=== PATIENT | male | born 1995 | race Caucasian/White ===

== ENCOUNTER 2017-02-13 12:25 | Emergency (ER) | payer OTHER ==
[2017-02-13] MEDS ORDERED: ceFAZolin 1,000 MG in DEXTROSE/WATER 1 50ML.BAG IVPB STA (12:28)
[2017-02-13] MEDS ORDERED: DIPH,PERTUS(ACELL)TETVAC-LF 0.5 ML VIAL IM ONE (12:28)
[2017-02-13 12:39] VITALS: BP 123/60; PULSE 68; RESP 16; TEMP 97.4
[2017-02-13] MEDS ORDERED: RX INFO: IV CONTRAST WAS GIVEN 1 EACH MISC MISCELLANE PRN (12:45)
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
[2017-02-13] MEDS ORDERED: SODIUM CHLORIDE 0.9% 1,000 ML IV STA (12:54)
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
--- NOTE | 2017-02-13 13:01 | XR ---
EXAMINATION TYPE: XR chest 1V portable DATE OF EXAM: 02/13/2017 HISTORY: trauma. REFERENCE: Previous study dated 11/20/2015. FINDINGS: The lungs are clear. Pleural space are clear. The heart is not enlarged. I do not see evide nce of pneumothorax. IMPRESSION: NO ACUTE INTRATHORACIC ABNORMALITY.
--- NOTE | 2017-02-13 13:07 | XR ---
EXAMINATION TYPE: XR pelvis AP view , ONE VIEW DATE OF EXAM ORDERED: 02/13/2017 HISTORY: Trauma. COMPARISON: Previous study dated 11/20/2015. FINDINGS: Osseous structures about the pelvis are normal. No fracture or other acute osseous lesion is seen. IMPRESSION: NORMAL PELVIS.
[2017-02-13 13:48] LABS: Basophils # (A) 0.1 k/uL (0-0.2); Basophils % (A) 0 %; CHCM 33.9; Eosinophils # (A) 0.1 k/uL (0-0.7); Eosinophils % (A) 1 %; HCT 45.8 % (39.0-53.0); HDW 2.49; HGB 14.8 gm/dL (13.0-17.5); Luc # (Auto) 0.07; Luc % (Auto) 1; Lymphocytes # (A) 0.8 k/uL (1.0-4.8); Lymphocytes % (A) 7 %; MCH 28.8 pg (25.0-35.0); MCHC 32.4 g/dL (31.0-37.0); MCV 88.9 fL (80.0-100.0); Monocytes # (A) 0.4 k/uL (0-1.0); Monocytes % (A) 4 %; Neutrophils % (A) 88 %; RBC 5.15 m/uL (4.30-5.90); RDW 14.2 % (11.5-15.5); WBC 11.4 k/uL (4.0-11.0); WBC (Perox) 11.88
[2017-02-13 14:13] LABS: INR 1.2 (<1.2); Partial Thromboplastin Time 22.2 sec (22.0-30.0); Prothrombin Time 11.8 sec (9.0-12.0)
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
[2017-02-13 14:20] LABS: ALT 23 U/L (21-72); AST 18 U/L (17-59); Alcohol <10 mg/dL; Alkaline Phosphatase 46 U/L (38-126); Anion Gap 5 mmol/L; Blood Urea Nitrogen 14 mg/dL (9-20); Calcium 8.3 mg/dL (8.4-10.2); Carbon Dioxide 25 mmol/L (22-30); Chloride 109 mmol/L (98-107); Glucose 85 mg/dL (74-99); Non-African American GFR(MDRD) >60 (>60 ml/min/1.73 sqM); Potassium 3.7 mmol/L (3.5-5.1); Sodium 139 mmol/L (137-145); Total Bilirubin 0.4 mg/dL (0.2-1.3); Total Protein 4.5 g/dL (6.3-8.2)
[2017-02-13 14:35] LABS: Creatine Kinase MB 1.4 ng/mL (0.0-2.4)
[2017-02-13 14:41] LABS: Troponin I 0.044 ng/mL (0.000-0.034)
== END 2017-02-13 14:55 | disposition other institution (70) ==
LOC: EC 12:25
DX: S21.131A Puncture wound without foreign body of right front wall of thorax without penetration into thoracic cavity, initial encounter (principal); S27.1XXA Traumatic hemothorax, initial encounter; F17.200 Nicotine dependence, unspecified, uncomplicated; Z23 Encounter for immunization; Z91.018 Allergy to other foods; X78.1XXA Intentional self-harm by knife, initial encounter; Y92.009 Unspecified place in unspecified non-institutional (private) residence as the place of occurrence of the external cause
CPT/HCPCS: 90471 ×2; 96365 ×2; 99291 ×2; 36415; 93005; 86900; 86901; 80053; 82550; 82553; 83690; 84484; 85025; 85610; 85730; 86850; 80320; 71010; 72170; 71260; 90715; Q9967; J0690; 86920; 96361

== ENCOUNTER 2017-02-16 15:50 | Inpatient (IN) | payer OTHER ==
[2017-02-16] MEDS ORDERED: ACETAMINOPHEN TAB 325 MG TAB PO PRN (20:20)
[2017-02-16] MEDS ORDERED: MAGNESIUM HYDROXIDE 2,400 MG/10 ML CUP PO PRN (20:20)
[2017-02-16] MEDS ORDERED: MAG HYDROX/AL HYDROX/SIMETH 30 ML CUP PO PRN (20:20)
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
[2017-02-16 21:39] LABS: Basophils # (A) 0.1 k/uL (0-0.2); Basophils % (A) 1 %; CHCM 33.1; Eosinophils # (A) 0.2 k/uL (0-0.7); Eosinophils % (A) 2 %; HCT 48.4 % (39.0-53.0); HDW 2.55; HGB 16.2 gm/dL (13.0-17.5); Luc # (Auto) 0.21; Luc % (Auto) 2; Lymphocytes # (A) 1.8 k/uL (1.0-4.8); Lymphocytes % (A) 15 %; MCH 29.5 pg (25.0-35.0); MCHC 33.5 g/dL (31.0-37.0); Mean Platelet Volume 6.6; Monocytes # (A) 0.7 k/uL (0-1.0); Monocytes % (A) 6 %; Neutrophils # (A) 9.1 k/uL (1.3-7.7); Neutrophils % (A) 76 %; RDW 12.7 % (11.5-15.5); WBC (Perox) 11.67
[2017-02-16 21:50] LABS: Anion Gap 9 mmol/L; Blood Urea Nitrogen 19 mg/dL (9-20); Calcium 9.5 mg/dL (8.4-10.2); Carbon Dioxide 27 mmol/L (22-30); Chloride 105 mmol/L (98-107); Glucose 88 mg/dL (74-99); Non-African American GFR(MDRD) >60 (>60 ml/min/1.73 sqM); Phosphorous 4.3 mg/dL (2.5-4.5); Sodium 141 mmol/L (137-145)
[2017-02-16 22:24] VITALS: BMI 19.5
[2017-02-16] MEDS: diphenhydrAMINE 25 MG CAP PO PRN (22:51)
[2017-02-17] MEDS: NICOTINE 21MG/24HR PATCH TRANSDERM SCH (08:58)
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
[2017-02-17] MEDS: SERTRALINE 50 MG TAB PO SCH (11:48)
[2017-02-17] MEDS: diphenhydrAMINE 25 MG CAP PO PRN (21:43)
[2017-02-18] MEDS: SERTRALINE 50 MG TAB PO SCH (09:07)
[2017-02-18] MEDS: NICOTINE 21MG/24HR PATCH TRANSDERM SCH (09:07)
--- NOTE | 2017-02-18 11:12 | P.PN ---
Progress Note - Text Interval history: The patient is found in group he follows me to an interview room. He reports that he has been attending groups and trying to learn as many coping skills as he can. He had a visit from his girlfriend and his sister last evening and felt that was supportive. He felt the meeting went better than he thought it would. He reports feeling safe here in the hospital. We again reviewed his presenting symptoms. We discussed the Zoloft again and his questions were answered. Mental status exam: The patient is a thin male appearing his stated age. He is casually dressed in his own clothing. Eye contact is appropriate. He has fluent spontaneous speech. He reports a recent history of depression with suicidal ideation, he notes ongoing feelings of anxiety and endorses racing thoughts due to anxiety. He denies having any acute suicidal or homicidal ideation here in the hospital. He is endorsing no auditory or visual hallucinations or specific delusions. There is no observed evidence of psychosis. He does not appear hypomanic or manic. He demonstrates no verbal or physical aggressiveness. Affect is constricted. Plan: The patient will be continued on the Zoloft we will consider titrating the dose during the course of his hospitalization. We will continue to monitor him for safety and encourage his participation in the milieu. We will consider discharging him early next week if clinically stable. Vital signs reviewed.
[2017-02-18] MEDS: ALBUTEROL INHALER 60 PUFF/8 GM INHALER INHALATION PRN ×3 (12:25→20:11)
[2017-02-18] MEDS: diphenhydrAMINE 25 MG CAP PO PRN (21:34)
[2017-02-19] MEDS: ALBUTEROL INHALER 60 PUFF/8 GM INHALER INHALATION PRN ×4 (07:43→21:08)
[2017-02-19] MEDS: NICOTINE 21MG/24HR PATCH TRANSDERM SCH (09:13)
[2017-02-19] MEDS: SERTRALINE 50 MG TAB PO SCH (09:14)
[2017-02-19] MEDS: traZODone HCL 50 MG TAB PO SCH (21:56)
--- NOTE | 2017-02-20 02:47 | P.PN ---
Progress Note - Text Progress Note Date: 02/19/17 nterval history: patient attending group on unit today and accompanied provider to office. He states that he feels "really well" and can now "live in the here and now". Reports that he has had some difficulty sleeping and would like to be prescribed something to help with that. Also, requesting to be taken off of Nicotine patch as he feels it is causing him to have nightmares. Would like nicotine gum instead. He has behaved well on the unit with no reported outbursts. Denies SI today. Mental status exam: The patient is a thin male appearing his stated age. He is casually dressed in his own clothing. Eye contact is appropriate. He has fluent spontaneous speech. He denies having any acute suicidal or homicidal ideation here in the hospital. He is endorsing no auditory or visual hallucinations or specific delusions. There is no observed evidence of psychosis. He does not appear hypomanic or manic. He demonstrates no verbal or physical aggressiveness. Affect is appropriate and Mood is euthymic. Plan: Will increase Zoloft to 100mg daily, start Trazodone 50mg QHS and discontinue Nicotine patch. Do not believe nicotine gum is in the formulary so this was not ordered. We will continue to monitor him for safety and encourage his participation in the milieu. We will consider discharging him early next week if clinically stable.
[2017-02-20] MEDS ORDERED: SERTRALINE 100 MG TAB PO SCH (09:00)
[2017-02-20] MEDS: ALBUTEROL INHALER 60 PUFF/8 GM INHALER INHALATION PRN (09:23)
[2017-02-20] MEDS: traZODone HCL 50 MG TAB PO SCH (22:34)
[2017-02-21] MEDS: SERTRALINE 100 MG TAB PO SCH (08:22)
[2017-02-21] MEDS: ALBUTEROL INHALER 60 PUFF/8 GM INHALER INHALATION PRN ×3 (11:58→20:52)
[2017-02-21] MEDS: traZODone HCL 50 MG TAB PO SCH (22:19)
--- NOTE | 2017-02-22 04:32 | P.PN ---
Progress Note - Text Progress Note Date: 02/20/17 Interval History: Patient discovered in [facility] socializing with peers. Escorted to private room for interview. Patient is doing much better today. Family meeting went well as noted below. Mood and anxiety are controlled. Patient is eating well and sleeping well. Denies SI/HI/AVH. Reviewed risks/benefits of Zoloft and Trazodone. Side effects were reviewed including: GI, sexual, and priapism. Patient voiced understanding. All questions concerns answered. ~ Family Meeting: Mom (Aaliyah) and dad (Arun) presented for family meeting with pt. Meeting went well as all parties were able to identify what they can expect (and can't expect) from each other, as well as what they expect in return. Reactivity identified as counterproductive as pt. identifies he in fact loves his girlfriend and wants their relationship to work, regardless of what he sometimes says or does. Judgement identified as a barrier for pt. to feel comfortable speaking openly with his parents. Therapy for pt. recommended with opportunities for pt.'s parents to particpate to help with communication. Pt. stated his appreciation and love for his parents, and parents acknowledged their tendency to be (over)protective of pt Mental Status Exam: Appearance: alert, well groomed, appears stated age, steady gait Behavior: no psychomotor agitation or psychomotor retardation, no abnormal movements, fair eye contact Attitude: cooperative Speech: normal rate, rhythm, fluency, articulation, volume, and prosody; primary language: Lithuanian Mood: mildly anxious Affect: congruent, reactive Thought processes: linear, organized Thought content: patient does not appear to be responding to internal stimuli; patient denies auditory and visual hallucinations, no delusions appreciated Insight: fair Judgment: fair Cognitive: oriented to all 3 spheres, average intelligence Plan: Continue hospitalization Continue Zoloft 100-mg PO QAM + Trazodone 50-mg PO QHS Patient has been attending most group, recreational, and activity therapies - encouraged to continue Patient had family meeting today as noted above went well Provisional discharge this coming week pending safe discharge plan coordinated by CARI
--- NOTE | 2017-02-22 04:40 | P.PN ---
Progress Note - Text Progress Note Date: 02/21/17 Patient discovered with peers watching the seasoning opening of Walking with peers. Patient requested a brief interview. He reports he is doing "great" today. His mood is euthymic, affect is bright. He reports feeling like he was heard during his family meeting. He reports previously feeling like his parents didn't care or weren't listening. Patient has no new concerns. Staff report unilaterally that patient is doing well. Patient inquires about discharge disposition and was encouraged to follow up with primary team tomorrow to avoid any miscommunication. At this time, patient denies SI/HI/AVH. No emergency medication needed during hospital course thus far. He is compliant with all medications. ~ Family Meeting (02/21/2017): Mom (Aaliyah) and dad (Arun) presented for family meeting with pt. Meeting went well as all parties were able to identify what they can expect (and can't expect) from each other, as well as what they expect in return. Reactivity identified as counterproductive as pt. identifies he in fact loves his girlfriend and wants their relationship to work, regardless of what he sometimes says or does. Judgment identified as a barrier for pt. to feel comfortable speaking openly with his parents. Therapy for pt. recommended with opportunities for pt.'s parents to participate to help with communication. Pt. stated his appreciation and love for his parents, and parents acknowledged their tendency to be (over)protective of pt Mental Status Exam: Appearance: alert, well groomed, appears stated age, steady gait Behavior: no psychomotor agitation or psychomotor retardation, no abnormal movements, fair eye contact Attitude: cooperative Speech: normal rate, rhythm, fluency, articulation, volume, and prosody; primary language: Turkmen Mood: euthymic Affect: bright Thought processes: linear, organized Thought content: patient does not appear to be responding to internal stimuli; patient denies auditory and visual hallucinations, no delusions appreciated Insight: fair Judgment: fair Cognitive: oriented to all 3 spheres, average intelligence Plan: Continue hospitalization Continue Zoloft 100-mg PO QAM + Trazodone 50-mg PO QHS Patient has been attending most group, recreational, and activity therapies - encouraged to continue Patient had family meeting today as noted above went well Provisional discharge this coming week pending safe discharge plan coordinated by [facility]I
[2017-02-22 06:51] VITALS: BP 99/57; PULSE 71; RESP 16; TEMP 97.1
[2017-02-22] MEDS: SERTRALINE 100 MG TAB PO SCH (08:36)
[2017-02-22] MEDS: ALBUTEROL INHALER 60 PUFF/8 GM INHALER INHALATION PRN (09:07)
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
== END 2017-02-22 13:25 | disposition home or self-care (01) | DRG 885 ==
LOC: 3MHU 17:42
PROVIDERS: ADMIT Psychiatry & Neurology Psychiatry; ATTEND Psychiatry & Neurology Psychiatry
DX: F32.2 Major depressive disorder, single episode, severe without psychotic features (principal); S21.111A Laceration without foreign body of right front wall of thorax without penetration into thoracic cavity, initial encounter; F41.1 Generalized anxiety disorder; F12.10 Cannabis abuse, uncomplicated; G47.9 Sleep disorder, unspecified; F17.200 Nicotine dependence, unspecified, uncomplicated; Z72.89 Other problems related to lifestyle; Z91.5 Personal history of self-harm; Z81.8 Family history of other mental and behavioral disorders; X83.8XXA Intentional self-harm by other specified means, initial encounter; Y92.9 Unspecified place or not applicable
CPT/HCPCS: 80048; 83735; 84100; 84484; 85025; 94640

== ENCOUNTER 2017-09-09 09:18 | Emergency (ER) | payer MEDICAID, OTHER ==
[2017-09-09] MEDS ORDERED: IBUPROFEN 600 MG TAB PO STA (11:23)
--- NOTE | 2017-09-09 12:42 | ED ---
Recheck HPI - General Chief Complaint: Recheck/Abnormal Lab/Rx Stated Complaint: Needs ring cut off finger Time Seen by Provider: 09/09/17 10:30 Source: patient, RN notes reviewed, old records reviewed Mode of arrival: ambulatory Limitations: no limitations - History of Present Illness Initial Comments: Patient's 21-year-old male presents by started to complain of ringing second is no finger. He reports his insulin for the past 2 days. Patient reports that he put the steering on a few days prior. He denies any trauma to the hand. He states he woke up with his finger very swollen and cannot get it off. He tried ice and keep it elevated. - Related Data Home Medications Medication Instructions Recorded Confirmed [place] (Unknown Dose) 3 tab PO QAM 09/09/17 09/09/17 Allergies Allergy/AdvReac Type Severity Reaction Status Date / Time pineapple Allergy Unknown Anaphylaxis Verified 09/09/17 09:41 Review of Systems ROS Statement: Those systems with pertinent positive or pertinent negative responses have been documented in the HPI. ROS Other: All systems not noted in ROS Statement are negative. Past Medical History Past Medical History: Asthma Additional Past Medical History / Comment(s): mood disorder History of Any Multi-Drug Resistant Organisms: None Reported Past Surgical History: Adenoidectomy, Tonsillectomy Past Anesthesia/Blood Transfusion Reactions: No Reported Reaction Past Psychological History: Anxiety Smoking Status: Current every day smoker Past Alcohol Use History: Occasional Past Drug Use History: Marijuana - Past Family History Mother Family Medical History: Diabetes Mellitus Father Family Medical History: No Reported History General Exam - General Exam Comments Initial Comments: 21-year-old male. Alert. No acute distress. Limitations: no limitations Head exam: Present: atraumatic, normocephalic, normal inspection Eye exam: Present: normal appearance, PERRL, EOMI. Absent: scleral icterus, conjunctival injection, periorbital swelling ENT exam: Present: normal exam, mucous membranes moist Neck exam: Present: normal inspection. Absent: tenderness, meningismus, lymphadenopathy Respiratory exam: Present: normal lung sounds bilaterally. Absent: respiratory distress, wheezes, rales, rhonchi, stridor Cardiovascular Exam: Present: regular rate, normal rhythm, normal heart sounds. Absent: systolic murmur, diastolic murmur, rubs, gallop, clicks GI/Abdominal exam: Present: soft, normal bowel sounds. Absent: distended, tenderness, guarding, rebound, rigid Extremities exam: Present: normal inspection, full ROM, normal capillary refill , other (ring stuck on middle finger. ). Absent: tenderness, pedal edema, joint swelling, calf tenderness Back exam: Present: normal inspection Neurological exam: Present: alert, oriented X3, CN II-XII intact Psychiatric exam: Present: normal affect, normal mood Skin exam: Present: warm, dry, intact, normal color. Absent: rash Course Vital Signs 09/09/17 09/09/17 09:20 14:12 Temperature 98.0 F 97.2 F L Pulse Rate 76 60 Respiratory 20 16 Rate Blood Pressure 122/67 131/68 O2 Sat by Pulse 100 98 Oximetry Medical Decision Making - Medical Decision Making 21 year old male with ring stuck on middle right finger. Patient ring was eventually removed after icing finger, and floss attempts. It was removed after spending a long time with the ring cutter. Patient had no trauma to cause it to swell and get stuck. Patient has relief after it was removed. Discussed follow up and to ice finger today. Disposition Clinical Impression: Swelling of right middle finger, Ring avulsion Disposition: HOME SELF-CARE Condition: Good Instructions: Swollen Joint (ED) Additional Instructions: Patient advised to ice the finger. Return to emergency department if any alarming signs or symptoms occur. Is patient prescribed a controlled substance at d/c from ED?: No If prescribed controlled substance>3 days was MAPS reviewed?: No When asked, does pt state using other controlled substances?: No Referrals: None,Stated [Primary Care Provider] - 1-2 days Time of Disposition: 13:38
[2017-09-09 14:13] VITALS: BP 131/68; PULSE 60; RESP 16; TEMP 97.2
== END 2017-09-09 14:12 | disposition home or self-care (01) ==
LOC: EC 09:18
DX: S61.202A Unspecified open wound of right middle finger without damage to nail, initial encounter (principal); F39 Unspecified mood [affective] disorder; F17.200 Nicotine dependence, unspecified, uncomplicated; Z79.899 Other long term (current) drug therapy; Z91.018 Allergy to other foods; X58.XXXA Exposure to other specified factors, initial encounter
CPT/HCPCS: 99283

== ENCOUNTER 2018-02-06 14:32 | Emergency (ER) | payer OTHER ==
[2018-02-06 14:39] VITALS: BP 120/79; RESP 18; TEMP 98.2
[2018-02-06] MEDS ORDERED: IPRATROPIUM-ALBUTEROL 3 ML NEB INHALATION STA (14:51)
[2018-02-06 15:09] VITALS: PULSE 90
--- NOTE | 2018-02-06 15:25 | ED ---
General Adult HPI - General Chief complaint: Upper Respiratory Infection Stated complaint: bad cough Time Seen by Provider: 02/06/18 14:41 Source: patient, RN notes reviewed Mode of arrival: ambulatory Limitations: no limitations - History of Present Illness Initial comments: 22-year-old male with a history of asthma presents to the emergency department for a chief complaint of cough 2 weeks. Patient states the cough is productive. Patient states he is beginning to feel like he is wheezing when he coughs. Patient states he has been diagnosed with asthma but does not have a nebulizer or inhaler at home. Patient is a current smoker. Patient denies any fevers or chills at home. He does admit to congestion but denies ear pain or sore throat. Patient has not been trying any [id number] medications for this. Patient has no other complaints at this time including shortness of breath, chest pain, abdominal pain, nausea or vomiting, headache, or visual changes. - Related Data Home Medications Medication Instructions Recorded Confirmed [place] (Unknown Dose) 3 tab PO QAM 09/09/17 09/09/17 Previous Rx's Medication Instructions Recorded Albuterol Inhaler [Ventolin Hfa 1 - 2 puff INHALATION Q6HR PRN #1 02/06/18 Inhaler] inhaler Azithromycin [Zithromax Z-pack] 250 mg PO DIRECTED #6 tab 02/06/18 predniSONE 50 mg PO DAILY #5 tablet 02/06/18 Allergies Allergy/AdvReac Type Severity Reaction Status Date / Time pineapple Allergy Unknown Anaphylaxis Verified 02/06/18 14:38 Review of Systems ROS Statement: Those systems with pertinent positive or pertinent negative responses have been documented in the HPI. ROS Other: All systems not noted in ROS Statement are negative. Past Medical History Past Medical History: Asthma Additional Past Medical History / Comment(s): mood disorder History of Any Multi-Drug Resistant Organisms: None Reported Past Surgical History: Adenoidectomy, Tonsillectomy Past Anesthesia/Blood Transfusion Reactions: No Reported Reaction Past Psychological History: Anxiety Smoking Status: Current every day smoker Past Alcohol Use History: Occasional Past Drug Use History: Marijuana - Past Family History Mother Family Medical History: Diabetes Mellitus Father Family Medical History: No Reported History General Exam Limitations: no limitations General appearance: alert, in no apparent distress (Well appearing, sitting up in bed,) Head exam: Present: atraumatic, normocephalic, normal inspection Eye exam: Present: normal appearance, PERRL, EOMI. Absent: scleral icterus, conjunctival injection, periorbital swelling ENT exam: Present: normal exam, normal oropharynx (Nonerythematous, uvula midline, no tonsillar exudates noted bilaterally), mucous membranes moist, TM's normal bilaterally (Nonerythematous, nonbulging, no opacification), normal external ear exam Neck exam: Present: normal inspection, full ROM. Absent: tenderness, meningismus, lymphadenopathy Respiratory exam: Present: wheezes (Wheezing noted in the left upper and lower lobes as well as the right lower lobe). Absent: respiratory distress, rales, rhonchi, stridor, accessory muscle use Cardiovascular Exam: Present: regular rate, normal rhythm, normal heart sounds. Absent: systolic murmur, diastolic murmur, rubs, gallop, clicks Neurological exam: Present: alert, oriented X3, CN II-XII intact Psychiatric exam: Present: normal affect, normal mood Course Vital Signs 02/06/18 02/06/18 02/06/18 14:37 15:05 15:19 Temperature 98.2 F Pulse Rate 91 90 Respiratory 18 18 Rate Blood Pressure 120/79 O2 Sat by Pulse 97 Oximetry 02/06/18 15:21 Temperature Pulse Rate 90 Respiratory Rate Blood Pressure O2 Sat by Pulse Oximetry Medical Decision Making - Medical Decision Making 22-year-old male presents for cough 2 weeks. Patient has history of asthma and is a smoker. Cough is productive. On exam patient does have wheezing noted. She refuses chest x-ray at this time due to having no insurance. He is aware that I cannot evaluate whether he has a pneumonia at this time. Patient did have a breathing treatment here in the emergency department states he feels much better. Wheezing has greatly improved after treatment. Increased aeration is noted. Patient is afebrile here in the emergency department. He denies fevers or chills at home. As we cannot obtain a chest x-ray patient will be treated with a Z-Mao as well as steroids. He was also given an albuterol inhaler. He will follow up with primary care in 1-2 days. Patient aware to return immediately to the emergency department if he has any worsening symptoms. Disposition Clinical Impression: Upper respiratory infection Disposition: HOME SELF-CARE Condition: Good Instructions: Upper Respiratory Infection (ED) Additional Instructions: Please take medication as directed. Please use albuterol inhaler as needed. Please follow-up with primary care in 1-2 days. Return immediately to the emergency department if you have any worsening symptoms. Prescriptions: Albuterol Inhaler [Ventolin Hfa Inhaler] 1 - 2 puff INHALATION Q6HR PRN #1 inhaler PRN Reason: Shortness Of Breath Azithromycin [Zithromax Z-pack] 250 mg PO DIRECTED #6 tab predniSONE 50 mg PO DAILY #5 tablet Is patient prescribed a controlled substance at d/c from ED?: No Referrals: Aleisha Cruz MD [STAFF PHYSICIAN] - 1-2 days Time of Disposition: 15:27
== END 2018-02-06 15:38 | disposition home or self-care (01) ==
LOC: EC 14:32
DX: J06.9 Acute upper respiratory infection, unspecified (principal); J45.909 Unspecified asthma, uncomplicated; F41.9 Anxiety disorder, unspecified; F17.200 Nicotine dependence, unspecified, uncomplicated; Z91.018 Allergy to other foods; Z79.899 Other long term (current) drug therapy; Z90.89 Acquired absence of other organs
CPT/HCPCS: 94640; 99284

== ENCOUNTER 2018-02-17 06:56 | Emergency (ER) | payer OTHER ==
[2018-02-17 07:03] VITALS: TEMP 97.8
--- NOTE | 2018-02-17 07:34 | ED ---
General Adult HPI - General Chief complaint: Psychiatric Symptoms Stated complaint: Mental Health Time Seen by Provider: 02/17/18 07:09 Source: patient, RN notes reviewed, old records reviewed Mode of arrival: ambulatory Limitations: no limitations - History of Present Illness Initial comments: 22-year-old male presenting for evaluation of suicidal ideation. Patient states that this evening he noticed that his girlfriend may be cheating on him, he is currently living with this individual. He went home began to pack his belongings. Police were called, and he did make some comments that he wanted to kill himself including putting a struck on inside of the garage. He denies any attempt at self-harm this morning. He has been petitioned by the police for psychiatric evaluation. Patient has no physical complaints. - Related Data Home Medications Medication Instructions Recorded Confirmed No Known Home Medications 02/17/18 02/17/18 Allergies Allergy/AdvReac Type Severity Reaction Status Date / Time pineapple Allergy Unknown Anaphylaxis Verified 02/17/18 10:02 Review of Systems ROS Statement: Those systems with pertinent positive or pertinent negative responses have been documented in the HPI. ROS Other: All systems not noted in ROS Statement are negative. Past Medical History Past Medical History: Asthma Additional Past Medical History / Comment(s): mood disorder History of Any Multi-Drug Resistant Organisms: None Reported Past Surgical History: Adenoidectomy, Tonsillectomy Past Anesthesia/Blood Transfusion Reactions: No Reported Reaction Past Psychological History: Anxiety Smoking Status: Current every day smoker Past Alcohol Use History: Occasional Past Drug Use History: Marijuana - Past Family History Mother Family Medical History: Diabetes Mellitus Father Family Medical History: No Reported History General Exam Limitations: no limitations General appearance: alert, in no apparent distress Head exam: Present: atraumatic, normocephalic Eye exam: Present: normal appearance, PERRL ENT exam: Present: normal exam Neck exam: Present: normal inspection. Absent: tenderness Respiratory exam: Present: normal lung sounds bilaterally. Absent: respiratory distress Cardiovascular Exam: Present: regular rate, normal rhythm GI/Abdominal exam: Present: soft. Absent: distended, tenderness Extremities exam: Present: normal inspection Back exam: Present: normal inspection, full ROM Neurological exam: Present: alert, oriented X3. Absent: motor sensory deficit Psychiatric exam: Present: suicidal ideation Skin exam: Present: warm, dry, intact. Absent: cyanosis, diaphoretic Course Vital Signs 02/17/18 06:58 Temperature 97.8 F Pulse Rate 105 H Respiratory 10 L Rate Blood Pressure 137/87 O2 Sat by Pulse 99 Oximetry Medical Decision Making - Medical Decision Making 22-year-old male presenting with suicidal ideation. Patient was petitioned by police, he was medically cleared in the emergency department, he was evaluated by EPS. Patient does have good outpatient follow-up. He is given referrals and will be discharged home. No need for further psychiatric treatment or evaluation. I did reevaluate the patient after EPS, he continues to deny suicidal ideation. - Lab Data Lab Results 02/17/18 Range/Units 07:42 Urine Opiates Screen Not Detected (NotDetected) Ur Oxycodone Screen Not Detected (NotDetected) Urine Methadone Screen Not Detected (NotDetected) Ur Propoxyphene Screen Not Detected (NotDetected) Ur Barbiturates Screen Not Detected (NotDetected) U Tricyclic Antidepress Not Detected (NotDetected) Ur Phencyclidine Scrn Not Detected (NotDetected) Ur Amphetamines Screen Not Detected (NotDetected) U Methamphetamines Scrn Not Detected (NotDetected) U Benzodiazepines Scrn Not Detected (NotDetected) Urine Cocaine Screen Not Detected (NotDetected) U Marijuana (THC) Screen Detected H (NotDetected) Disposition Clinical Impression: Depression Disposition: HOME SELF-CARE Condition: Good Instructions: Depression (ED) Additional Instructions: Please follow up with community mental health. Is patient prescribed a controlled substance at d/c from ED?: No Referrals: None,Stated [Primary Care Provider] - 1-2 days Time of Disposition: 10:14
[2018-02-17 08:10] LABS: Amphetamine Screen,Urine Not Detected (NotDetected); Barbiturate Screen,Urine Not Detected (NotDetected); Benzodiazepines Screen,Urine Not Detected (NotDetected); Cocaine Screen,Urine Not Detected (NotDetected); Methadone Screen, Urine Not Detected (NotDetected); Opiate Screen,Urine Not Detected (NotDetected); Oxycodone Screen, Urine Not Detected (NotDetected); Phencyclidine Screen,Urine Not Detected (NotDetected); Tricyclic Antidepressant,Urine Not Detected (NotDetected); Urn Cannabinoid Scrn Detected (NotDetected)
[2018-02-17 10:26] VITALS: BP 125/86; PULSE 84; RESP 18
== END 2018-02-17 10:26 | disposition home or self-care (01) ==
LOC: EC 06:56
DX: F32.9 Major depressive disorder, single episode, unspecified (principal); R45.851 Suicidal ideations; F17.200 Nicotine dependence, unspecified, uncomplicated; Z91.018 Allergy to other foods
CPT/HCPCS: 80306; 99285

== ENCOUNTER 2018-02-20 12:43 | Emergency (ER) | payer OTHER ==
[2018-02-20 12:56] VITALS: BP 133/85; PULSE 99; TEMP 98.3
[2018-02-20] MEDS ORDERED: DEXAMETHASONE SOD PHOSPHATE 10 MG/ML 1 ML VIAL IM STA (13:03)
[2018-02-20 13:06] VITALS: RESP 18
--- NOTE | 2018-02-20 13:27 | ED ---
ENT HPI - General Chief complaint: ENT Stated complaint: flu like symptoms Time Seen by Provider: 02/20/18 12:57 Source: patient, RN notes reviewed Mode of arrival: ambulatory Limitations: no limitations - History of Present Illness Initial comments: This is a pleasant 22-year-old male who presents emergency department complaining of a sore throat, runny nose, dry cough, low-grade fever, and body aches. Patient states symptoms started yesterday. Patient states his girlfriend has similar symptoms for last several days but seems to be getting better. Patient is a cigarette smoker. Patient denies any other symptomology. No abdominal pain. No nausea vomiting. No vision or hearing changes. No ear pain. No neck stiffness. No skin rashes or lesions. No difficulty with urination or bowel movements. MD complaint: sore throat - Related Data Home Medications Medication Instructions Recorded Confirmed No Known Home Medications 02/17/18 02/20/18 Allergies Allergy/AdvReac Type Severity Reaction Status Date / Time pineapple Allergy Unknown Anaphylaxis Verified 02/20/18 12:56 Review of Systems ROS Statement: Those systems with pertinent positive or pertinent negative responses have been documented in the HPI. ROS Other: All systems not noted in ROS Statement are negative. Past Medical History Past Medical History: Asthma Additional Past Medical History / Comment(s): mood disorder History of Any Multi-Drug Resistant Organisms: None Reported Past Surgical History: Adenoidectomy, Tonsillectomy Past Anesthesia/Blood Transfusion Reactions: No Reported Reaction Past Psychological History: Anxiety Smoking Status: Current every day smoker Past Alcohol Use History: Occasional Past Drug Use History: Marijuana - Past Family History Mother Family Medical History: Diabetes Mellitus Father Family Medical History: No Reported History General Exam - General Exam Comments Initial Comments: Well-developed, well-nourished 22-year-old male in no acute distress Limitations: no limitations General appearance: alert, in no apparent distress Head exam: Present: atraumatic, normocephalic, normal inspection Eye exam: Present: normal appearance, PERRL, EOMI. Absent: scleral icterus, conjunctival injection, periorbital swelling ENT exam: Present: normal exam, mucous membranes moist, TM's normal bilaterally , normal external ear exam, other (Patient has no evidence of airway compromise. No tonsillar adenopathy or exudate. Mild clear postnasal drainage. Mild clear nasal drainage. No evidence of sinusitis. No sinus tenderness. No nasal erythema. No oral sores or lesions. No airway compromise ). Absent: normal oropharynx Neck exam: Present: normal inspection, full ROM. Absent: tenderness, meningismus, lymphadenopathy, thyromegaly Respiratory exam: Present: normal lung sounds bilaterally. Absent: respiratory distress, wheezes, rales, rhonchi, stridor Cardiovascular Exam: Present: regular rate, normal rhythm, normal heart sounds. Absent: systolic murmur, diastolic murmur, rubs, gallop, clicks GI/Abdominal exam: Present: soft, normal bowel sounds. Absent: distended, tenderness, guarding, rebound, rigid Extremities exam: Present: normal inspection, full ROM, normal capillary refill. Absent: tenderness, pedal edema, joint swelling, calf tenderness Back exam: Present: normal inspection Neurological exam: Present: alert, oriented X3, CN II-XII intact Psychiatric exam: Present: normal affect, normal mood Skin exam: Present: warm, dry, intact, normal color. Absent: rash Course Vital Signs 02/20/18 02/20/18 12:54 13:05 Temperature 98.3 F Pulse Rate 99 Respiratory 16 18 Rate Blood Pressure 133/85 O2 Sat by Pulse 97 Oximetry Medical Decision Making - Medical Decision Making Streptococcal testing was negative. Patient was counseled on conservative therapy. Return and follow-up parameters discussed. Patient told to return immediately if symptoms worsen. - Lab Data Lab Results 02/20/18 Range/Units 13:03 Group A Strep Rapid Negative (Negative) Disposition Clinical Impression: Acute viral pharyngitis, Viral URI with cough, Cigarette smoker Disposition: HOME SELF-CARE Condition: Good Instructions: Pharyngitis (ED), Viral Syndrome (ED), How to Stop Smoking (ED) Additional Instructions: Patient told to return to the ER immediately if any symptoms worsen. Use over- the-counter Tylenol and Motrin for pain control and symptom control. Return to the ER if worse. Is patient prescribed a controlled substance at d/c from ED?: No Referrals: Jenni Bryson MD [REFERRING] - 02/24/18 Time of Disposition: 13:27
== END 2018-02-20 13:40 | disposition home or self-care (01) ==
LOC: EC 12:43
DX: J02.8 Acute pharyngitis due to other specified organisms (principal); F17.210 Nicotine dependence, cigarettes, uncomplicated; Z91.018 Allergy to other foods; Z90.89 Acquired absence of other organs
CPT/HCPCS: 87081; 87430; 99283; 96372; J1100

== ENCOUNTER 2018-08-16 15:42 | Emergency (ER) | payer OTHER ==
[2018-08-16 15:49] VITALS: BP 125/70; PULSE 85; RESP 16; TEMP 98.1
--- NOTE | 2018-08-16 16:19 | ED ---
General Adult HPI - General Chief complaint: Recheck/Abnormal Lab/Rx Stated complaint: Rash Time Seen by Provider: 08/16/18 15:54 Source: patient, RN notes reviewed, old records reviewed Mode of arrival: ambulatory Limitations: no limitations - History of Present Illness Initial comments: 22-year-old male patient presents to ED for evaluation of right lower extremity. Patient points that he had a rash on the distal aspect of his right lower extremity for approximately 3 days, patient reports that this rash was mildly erythematous, mildly pruritic. Patient reports that this has resolved. 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 Patient also states that his mother had shingles recently and he needs to be checked to make sure he has not had shingles. Patient reports that he did not have chickenpox as a child. Patient denies any current complaints, is asymptomatic. Systemic: Pt denies fatigue, myalgia, fever/chills, rash. Pt denies weakness, night sweats, weight loss. Neuro: Pt denies headache, visual disturbances, syncope or pre-syncope. HEENT: Pt denies ocular discharge or irritation, otalgia, rhinorrhea, pharyngitis or notable lymphadenopathy. Cardiopulmonary: Pt denies chest pain, SOB, heart palpitations, dyspnea on exertion. Abdominal/GI: Pt denies abdominal pain, n/v/d. : Pt denies dysuria, burning w/ urination, frequency/urgency. Denies new onset urinary or bowel incontinence. MSK: Pt denies myalgia, loss of strength or function in extremities. Neuro: Pt denies new onset weakness, paresthesias. - Related Data Home Medications Medication Instructions Recorded Confirmed No Known Home Medications 02/17/18 02/20/18 Allergies Allergy/AdvReac Type Severity Reaction Status Date / Time pineapple Allergy Unknown Anaphylaxis Verified 08/16/18 15:49 Review of Systems ROS Statement: Those systems with pertinent positive or pertinent negative responses have been documented in the HPI. ROS Other: All systems not noted in ROS Statement are negative. Past Medical History Past Medical History: Asthma Additional Past Medical History / Comment(s): mood disorder History of Any Multi-Drug Resistant Organisms: None Reported Past Surgical History: Adenoidectomy, Tonsillectomy Past Anesthesia/Blood Transfusion Reactions: No Reported Reaction Past Psychological History: Anxiety, Depression Smoking Status: Current every day smoker Past Alcohol Use History: Occasional Past Drug Use History: Marijuana - Past Family History Mother Family Medical History: Diabetes Mellitus Father Family Medical History: No Reported History General Exam - General Exam Comments Initial Comments: Constitutional: NAD, AOX3, Pt has pleasant affect. HEENT: NC/AT, trachea midline, neck supple, no lymphadenopathy. Posterior pharynx non erythematous, without exudates. External ears appear normal, without discharge. Mucous membranes moist. Eyes PERRLA, EOM intact. There is no scleral icterus. No pallor noted. Cardiopulmonary: RRR, no murmurs, rubs or gallops, no JVD noted. Lungs CTAB in anterior and posterior martinez. No peripheral edema. Abdominal exam: Abdomen soft and non-distended. Abdomen non-tender to palpation in all 4 quadrants. Bowel sounds active in LLQ. No hepatosplenomegaly. No ecchymosis Neuro: CN II-XII grossly intact. No nuchal rigidity. MSK: No posterior calf tenderness bilaterally, homans sign negative bilaterally. Posterior tibialis and radial pulse +2 bilaterally. Sensation intact in upper and lower extremities. Full active ROM in upper and lower extremities, 5/5 stregnth. Derm: dermatology exam performed, no evidence of rash noted. Limitations: no limitations Course Vital Signs 08/16/18 15:44 Temperature 98.1 F Pulse Rate 85 Respiratory 16 Rate Blood Pressure 125/70 O2 Sat by Pulse 98 Oximetry Medical Decision Making - Medical Decision Making 22-year-old male patient presents to ED for evaluation of right lower extremity. Patient points that he had a rash on the distal aspect of his right lower extremity for approximately 3 days, patient reports that this rash was mildly erythematous, mildly pruritic. Patient reports that this has resolved. 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 Patient also states that his mother had shingles recently and he needs to be checked to make sure he has not had shingles. Patient reports that he did not have chickenpox as a child. Patient denies any current complaints, is asymptomatic. Patient vital signs stable, afebrile. Dermatologic exam did not display any sign of rash. Patient discharged. Patient returned ER physician worsen in anyway or if rash develops. Case discussed with Dr. Cavazos. Disposition Clinical Impression: Skin condition resolved Disposition: HOME SELF-CARE Condition: Stable Instructions (If sedation given, give patient instructions): Acute Rash (ED) Additional Instructions: Patient to adhere to previously discussed treatment plan and will take medication(s) as directed. Patient to follow up with PCP in 1-2 days. Patient to return to ED if symptoms do not improve. Please follow-up with primary care provider in 1-2 days. Return to ER if rash returns. Is patient prescribed a controlled substance at d/c from ED?: No Referrals: None,Stated [Primary Care Provider] - 1-2 days [facility] - 1-2 days
== END 2018-08-16 16:25 | disposition home or self-care (01) ==
LOC: EC 15:42
DX: R21 Rash and other nonspecific skin eruption (principal); F17.200 Nicotine dependence, unspecified, uncomplicated; Z91.018 Allergy to other foods
CPT/HCPCS: 99283

== ENCOUNTER 2021-01-24 15:28 | Emergency (ER) | payer OTHER ==
[2021-01-24 16:01] VITALS: RESP 18
[2021-01-24] MEDS ORDERED: ASPIRIN 81 MG PO STA (16:01)
[2021-01-24] MEDS ORDERED: LORazepam 1 MG TAB PO STA (16:01)
--- NOTE | 2021-01-24 16:19 | XR ---
EXAMINATION TYPE: XR chest 2V DATE OF EXAM: 01/24/2021 COMPARISON: Chest x-ray and CT chest February 13, 2017. HISTORY: Chest pain. TECHNIQUE: Frontal and lateral views of the chest are obtained. FINDINGS: An azygos lobe/fissure is redemonstrated. Mild right apical pleural thickening. There is no suspicious focal air space opacity, pleural effusion, or pneumothorax seen. The cardiac silhouette size is stable and within normal limits. The osseous structures are intact. IMPRESSION: No acute cardiopulmonary process.
[2021-01-24 16:29] LABS: Basophils # (A) 0.1 k/uL (0-0.2); Basophils % (A) 1 %; Eosinophils # (A) 0.2 k/uL (0-0.7); Eosinophils % (A) 2 %; HCT 52.5 % (39.0-53.0); HGB 15.8 gm/dL (13.0-17.5); Lymphocytes # (A) 2.6 k/uL (1.0-4.8); Lymphocytes % (A) 24 %; MCH 25.8 pg (25.0-35.0); MCHC 30.1 g/dL (31.0-37.0); MCV 85.7 fL (80.0-100.0); Mean Platelet Volume 7.8; Monocytes # (A) 0.5 k/uL (0-1.0); Monocytes % (A) 4 %; Neutrophils # (A) 7.3 k/uL (1.3-7.7); Neutrophils % (A) 67 %; Platelet Count 257 k/uL (150-450); RBC 6.13 m/uL (4.30-5.90); RDW 12.5 % (11.5-15.5); WBC 10.9 k/uL (3.8-10.6)
[2021-01-24 16:37] LABS: ALT 29 U/L (4-49); AST 43 U/L (17-59); African American GFR (CKD) >90 (>60 ml/min/1.73 sqM); Albumin 4.8 g/dL (3.5-5.0); Alcohol <10 mg/dL; Alkaline Phosphatase 73 U/L (38-126); Anion Gap 15 mmol/L; Blood Urea Nitrogen 12 mg/dL (9-20); Carbon Dioxide 15 mmol/L (22-30); Chloride 107 mmol/L (98-107); Glucose 94 mg/dL (74-99); Magnesium 1.6 mg/dL (1.6-2.3); Non-African American GFR(CKD) >90 (>60 ml/min/1.73 sqM); Sodium 137 mmol/L (137-145); Total Bilirubin 1.1 mg/dL (0.2-1.3)
[2021-01-24 16:38] LABS: Potassium 4.3 mmol/L (3.5-5.1)
[2021-01-24 16:39] LABS: Partial Thromboplastin Time 23.4 sec (22.0-30.0); Prothrombin Time 10.7 sec (9.0-12.0)
--- NOTE | 2021-01-24 18:58 | ED ---
General Adult HPI - General Chief complaint: Anxiety Stated complaint: anxiety Time Seen by Provider: 01/24/21 15:36 Source: EMS, RN notes reviewed, old records reviewed Mode of arrival: EMS Limitations: no limitations - History of Present Illness Initial comments: I evaluated the patient when he was placed in a room. Patient is a 25-year-old male with past medical history remarkable for mild asthma as a child as well as frequent anxiety and panic attacks. Patient presents emergency Department complaining of a pressure-like chest pain that is been present more or less for multiple days. It gets worse when he is more stressed out. He is concerned about his heart. He is also concerned that he may have Covid. Denies any dyspnea. Denies any abdominal pain, nausea, vomiting. Denies any fevers, chills, sick contacts. Denies any drug use. His no other acute lives at this time. Discussed the chest pain as a pressure-like sensation located in the middle of his chest that does not radiate. He denies any known alleviating factors but does endorse stress as a worsening factor. Patient presents over concern for his symptoms which have been present for at least 1-2 days. - Related Data Previous Rx's Medication Instructions Recorded LORazepam [Ativan] 1 mg PO HS PRN 2 Days #2 tab 01/24/21 Allergies Allergy/AdvReac Type Severity Reaction Status Date / Time pineapple Allergy Unknown Anaphylaxis Verified 08/16/18 15:49 Review of Systems ROS Statement: Those systems with pertinent positive or pertinent negative responses have been documented in the HPI. Review of Systems: CONST: Denies fever EYES: Denies blurry vision ENT: Denies nasal congestion C/V: Endorses chest pain RESP: Denies shortness of breath GI: Denies abdominal pain : Denies dysuria SKIN: Denies rash. MSK: Denies joint pain. NEURO: Denies headache ROS Other: All systems not noted in ROS Statement are negative. Past Medical History Past Medical History: Asthma Additional Past Medical History / Comment(s): mood disorder History of Any Multi-Drug Resistant Organisms: None Reported Past Surgical History: Adenoidectomy, Tonsillectomy Past Anesthesia/Blood Transfusion Reactions: No Reported Reaction Past Psychological History: Anxiety, Depression Smoking Status: Current every day smoker Past Alcohol Use History: Daily Past Drug Use History: Marijuana - Past Family History Mother Family Medical History: Diabetes Mellitus Father Family Medical History: No Reported History General Exam - General Exam Comments Initial Comments: General: Appears in no acute distress. HEAD: Normal with no signs of head trauma. EYES: PERRLA, EOMI, conjunctiva normal, no discharge. ENT: Hearing grossly intact, normal oropharynx. RESPIRATORY: Clear breath sounds bilaterally. No wheezes, rales, or rhonchi. C/V: Regular rate and rhythm. S1 and S2 auscultated, no edema, peripheral pulses 2+ and intact throughout ABD: Abd is soft, nontender, nondistended EXT: Normal range of motion, no obvious deformity SKIN: No rashes or lesions observed on exposed skin. NEURO: Alert and oriented x 4. Cranial nerves II-XII intact. No focal sensory or strength deficits. Limitations: no limitations Course Vital Signs 01/24/21 01/24/21 01/24/21 15:29 15:59 16:33 Temperature 97.5 F L Pulse Rate 94 80 Respiratory 20 18 18 Rate Blood Pressure 142/90 125/75 O2 Sat by Pulse 100 100 100 Oximetry 01/24/21 01/24/21 01/24/21 17:33 18:00 19:00 Temperature Pulse Rate Respiratory 18 18 18 Rate Blood Pressure O2 Sat by Pulse 100 100 100 Oximetry 01/24/21 19:41 Temperature 97.8 F Pulse Rate 88 Respiratory 18 Rate Blood Pressure 125/83 O2 Sat by Pulse 100 Oximetry Medical Decision Making - Medical Decision Making Based on the patient's presentation and physical exam, I low suspicion for cardiac etiology for his current symptoms but we'll obtain a screening cardiac exam. Also obtain a d-dimer as he states that the symptoms have been worse and he did describe some mild redness of breath yesterday with them. Basic labs also be obtained as well as a chest x-ray and EKG. He will be given aspirin as well as Ativan, as I do believe he is a strong anxiety component to his current symptoms. He was in agreement with this plan. Patient's EKG showed no signs of acute ischemia. Patient's laboratory studies are remarkable for a very mild leukocytosis of 10.9 which is likely reactive. The remainder of his labs are unremarkable, including a normal troponin and d- dimer. Alcohol level is negative. Covid is negative. Chest x-ray reveals no acute cardiopulmonary process. On reevaluation, patient is feeling improved. I did expand from the results of his negative workup. He was really. He is wishing to speak with psychiatry at this time for his anxiety. Therefore EPS will be contacted. Patient is medically cleared for psychiatric evaluation. Psychiatry evaluated the patient into is stable for discharge home with follow- up. I will provide him with two 1 mg Ativan tablets until he follows up. Patient was in agreement this plan. Patient was therefore discharged home in fair condition. Patient was given contact information for follow up with psychiatry. Strict return precautions were discussed with the patient to return if any of his symptoms worsen. Patient was in agreement this plan. - Lab Data Result diagrams: 01/24/21 16:05 01/24/21 16:05 Lab Results 01/24/21 01/24/21 01/24/21 Range/Units 16:05 16:05 16:05 WBC 10.9 H (3.8-10.6) k/uL RBC 6.13 H (4.30-5.90) m/uL Hgb 15.8 (13.0-17.5) gm/dL Hct 52.5 (39.0-53.0) % MCV 85.7 (80.0-100.0) fL MCH 25.8 (25.0-35.0) pg MCHC 30.1 L (31.0-37.0) g/dL RDW 12.5 (11.5-15.5) % Plt Count 257 (150-450) k/uL MPV 7.8 Neutrophils % 67 % Lymphocytes % 24 % Monocytes % 4 % Eosinophils % 2 % Basophils % 1 % Neutrophils # 7.3 (1.3-7.7) k/uL Lymphocytes # 2.6 (1.0-4.8) k/uL Monocytes # 0.5 (0-1.0) k/uL Eosinophils # 0.2 (0-0.7) k/uL Basophils # 0.1 (0-0.2) k/uL PT 10.7 (9.0-12.0) sec INR 1.0 (<1.2) APTT 23.4 (22.0-30.0) sec D-Dimer 0.19 (<0.60) mg/L FEU Sodium 137 (137-145) mmol/L Potassium 4.3 (3.5-5.1) mmol/L Chloride 107 (98-107) mmol/L Carbon Dioxide 15 L (22-30) mmol/L Anion Gap 15 mmol/L BUN 12 (9-20) mg/dL Creatinine 0.91 (0.66-1.25) mg/dL Est GFR (CKD-EPI)AfAm >90 (>60 ml/min/1.73 sqM) Est GFR (CKD-EPI)NonAf >90 (>60 ml/min/1.73 sqM) Glucose 94 (74-99) mg/dL Calcium 10.0 (8.4-10.2) mg/dL Magnesium 1.6 (1.6-2.3) mg/dL Total Bilirubin 1.1 (0.2-1.3) mg/dL AST 43 (17-59) U/L ALT 29 (4-49) U/L Alkaline Phosphatase 73 (38-126) U/L Troponin I (0.000-0.034) ng/mL Total Protein 8.0 (6.3-8.2) g/dL Albumin 4.8 (3.5-5.0) g/dL Serum Alcohol <10 mg/dL Coronavirus (PCR) (Not Detectd) 01/24/21 01/24/21 Range/Units 16:05 18:52 WBC (3.8-10.6) k/uL RBC (4.30-5.90) m/uL Hgb (13.0-17.5) gm/dL Hct (39.0-53.0) % MCV (80.0-100.0) fL MCH (25.0-35.0) pg MCHC (31.0-37.0) g/dL RDW (11.5-15.5) % Plt Count (150-450) k/uL MPV Neutrophils % % Lymphocytes % % Monocytes % % Eosinophils % % Basophils % % Neutrophils # (1.3-7.7) k/uL Lymphocytes # (1.0-4.8) k/uL Monocytes # (0-1.0) k/uL Eosinophils # (0-0.7) k/uL Basophils # (0-0.2) k/uL PT (9.0-12.0) sec INR (<1.2) APTT (22.0-30.0) sec D-Dimer (<0.60) mg/L FEU Sodium (137-145) mmol/L Potassium (3.5-5.1) mmol/L Chloride (98-107) mmol/L Carbon Dioxide (22-30) mmol/L Anion Gap mmol/L BUN (9-20) mg/dL Creatinine (0.66-1.25) mg/dL Est GFR (CKD-EPI)AfAm (>60 ml/min/1.73 sqM) Est GFR (CKD-EPI)NonAf (>60 ml/min/1.73 sqM) Glucose (74-99) mg/dL Calcium (8.4-10.2) mg/dL Magnesium (1.6-2.3) mg/dL Total Bilirubin (0.2-1.3) mg/dL AST (17-59) U/L ALT (4-49) U/L Alkaline Phosphatase (38-126) U/L Troponin I 0.013 (0.000-0.034) ng/mL Total Protein (6.3-8.2) g/dL Albumin (3.5-5.0) g/dL Serum Alcohol mg/dL Coronavirus (PCR) Not Detected (Not Detectd) - EKG Data -: EKG Interpreted by Me EKG Comments: 12-lead Electrocardiogram Interpretation Note EKG was reviewed and interpreted by myself. 12-lead ECG performed at 1539 is interpreted by me as revealing normal sinus rhythm at a rate of 92 beats per minute. [place] is normal. [place] interval is 144 ms, QRS duration is 82 ms, QTc is 450 ms.. There were no ST or T wave abnormalities to suggest myocardial ischemia or injury. R wave progression across the precordium was satisfactory. By my interpretation this EKG is non-diagnostic for acute ischemia. Disposition Clinical Impression: Encounter for psychiatric assessment, Anxiety, Chest pain of unknown etiology Disposition: HOME SELF-CARE Condition: Good Instructions (If sedation given, give patient instructions): Generalized Anxiety Disorder (ED) Prescriptions: LORazepam [Ativan] 1 mg PO HS PRN 2 Days #2 tab PRN Reason: Anxiety Is patient prescribed a controlled substance at d/c from ED?: No Referrals: None,Stated [Primary Care Provider] - 1-2 days
[2021-01-24 19:44] VITALS: BP 125/83; PULSE 88; TEMP 97.8
[2021-01-26 03:10] LABS: Urine Alcohol Negative (Negative); Urine Barbiturate Negative (Negative); Urine Cocaine Negative (Negative); Urine Methadone Negative (Negative); Urine Opiates Negative (Negative); Urine Phencyclidine Negative (Negative)
== END 2021-01-24 19:41 | disposition home or self-care (01) ==
LOC: EC 15:28
DX: R07.9 Chest pain, unspecified (principal); F41.9 Anxiety disorder, unspecified; F32.9 Major depressive disorder, single episode, unspecified; J45.909 Unspecified asthma, uncomplicated; F17.200 Nicotine dependence, unspecified, uncomplicated; F12.90 Cannabis use, unspecified, uncomplicated; Z90.89 Acquired absence of other organs; Z20.822 Contact with and (suspected) exposure to COVID-19
CPT/HCPCS: 99285; 36415; 93005; 85379; 80053; 83735; 84484; 85025; 85610; 85730; 80306; 87635; 71046; G0480; 80320

== ENCOUNTER → 2021-06-09 | Outpatient (CLI) | payer OTHER ==
[2021-06-10 18:16] LABS: Alternaria alternata IgE <0.10 kU/L; Aspergillus fumagatus IgE <0.10 kU/L; Birch IgE 4.37 kU/L; Cat Epith & Dander IgE 0.11 kU/L; Cladosporian herbarum IgE <0.10 kU/L; Cockroach IgE <0.10 kU/L; Dog Dander IgE <0.10 kU/L; Elm IgE 1.28 kU/L; Oak IgE 0.85 kU/L
== END | disposition home or self-care (01) ==
LOC: LABWHC1 14:25
PROVIDERS: ATTEND Internal Medicine Critical Care Medicine
DX: J45.40 Moderate persistent asthma, uncomplicated (principal)
CPT/HCPCS: 36415; 82785; 85008; 86003

== ENCOUNTER → 2021-07-18 | Outpatient (CLI) | payer OTHER ==
[2021-07-19 00:45] LABS: African American GFR (CKD) 121.6 (60.0-200.0); Albumin 4.2 g/dL (3.8-4.9); Albumin/Globulin Ratio 1.45 (1.60-3.17); Anion Gap 11.7 mmol/L (10.00-18.00); BUN/Creat Ratio 14.8 Ratio (12.00-20.00); Blood Urea Nitrogen 14.8 mg/dL (9.0-27.0); Calcium 9.3 mg/dL (8.7-10.3); Carbon Dioxide 20.3 mmol/L (20.0-27.5); Globulin 2.9 g/dL (1.6-3.3); Non-African American GFR(CKD) 104.9 (60.0-200.0); Potassium 4.6 mmol/L (3.5-5.5); Total Bilirubin 0.3 mg/dL (0.30-1.20); Total Protein 7.1 g/dL (6.2-8.2)
== END | disposition home or self-care (01) ==
LOC: LABWHC1 15:39
PROVIDERS: ATTEND Family Medicine
DX: R51.9 Headache, unspecified (principal)
CPT/HCPCS: 36415; 80053

== ENCOUNTER → 2021-08-08 | Outpatient (CLI) | payer OTHER ==
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
== END | disposition home or self-care (01) ==
LOC: RADMRIMAIN 15:27
PROVIDERS: ATTEND Family Medicine
DX: R51.9 Headache, unspecified (principal); R42 Dizziness and giddiness
CPT/HCPCS: 70553; A9585

== ENCOUNTER 2024-07-24 11:03 | Emergency (ER) | payer BC ==
[2024-07-24 11:07] VITALS: TEMP 98.2
--- NOTE | 2024-07-24 11:44 | ED ---
Chest Pain HPI - General Chief Complaint: Chest Pain Stated Complaint: no feeling in hands/feet, tight in chest Time Seen by Provider: 07/24/24 11:20 Source: patient, RN notes reviewed Mode of arrival: ambulatory Limitations: no limitations - History of Present Illness Initial Comments: This is a 28-year-old male who presents to the emergency department for chest pain. States that last night when he tried to go to sleep he had chest pain and tingling in his hands and feet. This made it so he was unable to sleep all night. States that the pain is worse when he tries to breathe. Also states that he feels dizzy and mildly short of breath. States that this has happened to him in the past and he is unsure why. He did to start taking BuSpar a few days ago for his anxiety, but is unsure if it is effective. Denies any family history of premature CAD. MD Complaint: chest pain - Related Data Previous Rx's Medication Instructions Recorded LORazepam [Ativan] 1 mg PO HS PRN 2 Days #2 tab 01/24/21 Allergies Allergy/AdvReac Type Severity Reaction Status Date / Time pineapple Allergy Unknown Anaphylaxis Verified 07/24/24 11:07 Review of Systems ROS Statement: Those systems with pertinent positive or pertinent negative responses have been documented in the HPI. ROS Other: All systems not noted in ROS Statement are negative. Past Medical History Past Medical History: Asthma Additional Past Medical History / Comment(s): mood disorder History of Any Multi-Drug Resistant Organisms: None Reported Past Surgical History: Adenoidectomy, Tonsillectomy Past Anesthesia/Blood Transfusion Reactions: No Reported Reaction Past Psychological History: Anxiety, Depression Smoking Status: Current every day smoker Past Alcohol Use History: Daily Past Drug Use History: Marijuana - Past Family History Mother Family Medical History: Diabetes Mellitus Father Family Medical History: No Reported History General Exam Limitations: no limitations General appearance: alert, in no apparent distress Head exam: Present: atraumatic, normocephalic, normal inspection Respiratory exam: Present: normal lung sounds bilaterally. Absent: respiratory distress, wheezes, rales, rhonchi, stridor Cardiovascular Exam: Present: regular rate, normal rhythm Neurological exam: Present: alert, oriented X3, CN II-XII intact Expanded Cerebellar function: Finger to Nose: Normal, Heel to Samuel: Normal, Romberg: Normal Sensory exam: Upper Extremity Light Touch: Normal, Upper Extremity Temperature: Normal, UE 2 Point Discrimination: Normal, Lower Extremity Light Touch: Normal, Lower Extremity Temperature: Normal, LE 2 Point Discrimination: Normal Motor strength exam: RUE: 5, LUE: 5, RLE: 5, LLE: 5 Psychiatric exam: Present: normal affect, normal mood Skin exam: Present: warm, dry, intact, normal color. Absent: rash Course Vital Signs 07/24/24 07/24/24 11:05 12:36 Temperature 98.2 F Pulse Rate 98 72 Respiratory 17 18 Rate Blood Pressure 137/85 138/87 O2 Sat by Pulse 97 97 Oximetry Chest Pain MDM - MDM This is a 28 year old male who presents to the emergency department for chest pain. Was pt. sent in by a medical professional or institution? @ -No Did you speak to anyone other than the patient for history? @ -No Did you review nursing and triage notes? @ -Yes, and I agree, it is accurate with regards to the patient's symptoms. Were old charts reviewed? @ -No Differential Diagnosis? @ -Differential Chest Pain: Stable Angina, Unstable Angina, STEMI, NSTEMI Aortic Dissection, Pneumothorax, Musculoskeletal, Esophageal Spasm GERD, Cholecystitis, Pancreatitis, Zoster, this is not meant to be an all-inclusive list. EKG interpreted by me (3pts min.)? @ -EKG interpreted by me demonstrating the following: Sinus rhythm. Ventricular rate 94 bpm, SC interval 163 ms, QRS duration 92 ms, QTc 392 ms. X-rays interpreted by me (1pt min.)? @ -Chest x-ray obtained, my interpretation identifies no localized consolidations or infiltrates. CT interpreted by me (1pt min.)? @ -Not obtained U/S interpreted by me (1pt. min.)? @ -Not obtained What testing was considered but not performed? (CT, X-rays, U/S, labs)? Why? @ -None What meds were considered but not given? Why? @ -None Did you discuss the management of the patient with other professionals? @ -No Did you reconcile home meds? @ -No Was smoking cessation discussed for >3mins.? @ -No Was critical care preformed (if so, how long)? @ -No Were there social determinants of health that impacted care today? How? (Homelessness, low income, unemployed, alcoholism, drug addiction, transportation, low edu. Level, literacy, decrease access to med. care, prison, rehab)? @ -No Was there de-escalation of care discussed even if they declined? (Discuss DNR or withdrawal of care, Hospice)? @ -No What co-morbidities impacted this encounter? (DM, HTN, Smoking, COPD, CAD, Cancer, CVA, Hep., AIDS, mental health diagnosis, sleep apnea, morbid obesity)? @ -None Was patient admitted / discharged? @ -Discharged. Lab work unremarkable. Troponin and D-dimer negative. Patient has a low heart score of 0. Patient treated with Toradol with improvement in symptoms. Symptoms likely musculoskeletal in nature. Advised he continue with [id number] medications such as ibuprofen or Tylenol for pain relief and follow-up with his primary care provider in the next couple of days. Case discussed with ED attending Dr. Jackson. Return precautions reviewed in depth, the patient is instructed to return to the emergency department with any new, worsening, or concerning symptoms. Patient verbalized understanding. Undiagnosed new problem with uncertain prognosis? @ -None Drug Therapy requiring intensive monitoring for toxicity (Heparin, Nitro, Insulin, Cardizem)? @ -None Were any procedures done? @ -None Diagnosis/symptom? @ -Chest pain Acute, or Chronic, or Acute on Chronic? @ -Acute Uncomplicated (without systemic symptoms) or Complicated (systemic symptoms)? @ -Uncomplicated Side effects of treatment? @ -None Exacerbation, Progression, or Severe Exacerbation] @ -Not applicable Poses a threat to life or bodily function? @ -No Disposition Clinical Impression: Chest pain Disposition: HOME SELF-CARE Instructions (If sedation given, give patient instructions): Chest Pain (ED), Noncardiac Chest Pain (ED) Additional Instructions: Return to the emergency department with any new, worsening, or concerning symptoms. Alternate with ibuprofen and Tylenol as needed if the pain returns. Follow up with your primary care provider in 1-2 days. Is patient prescribed a controlled substance at d/c from ED?: No Referrals: Aaron Joseph DO [Primary Care Provider] - 1-2 days Time of Disposition: 12:28
[2024-07-24 11:49] LABS: Basophils # (A) 0.1 k/uL (0-0.2); Basophils % (A) 1 %; Eosinophils # (A) 0.2 k/uL (0-0.7); Eosinophils % (A) 3 %; HCT 45.4 % (39.0-53.0); HGB 15.5 gm/dL (13.0-17.5); Lymphocytes # (A) 2.2 k/uL (1.0-4.8); Lymphocytes % (A) 25 %; MCH 28.2 pg (25.0-35.0); MCHC 34.2 g/dL (31.0-37.0); MCV 82.6 fL (80.0-100.0); Mean Platelet Volume 7.1; Monocytes # (A) 0.4 k/uL (0-1.0); Monocytes % (A) 4 %; Neutrophils # (A) 5.8 k/uL (1.3-7.7); Neutrophils % (A) 66 %; Platelet Count 294 k/uL (150-450); RDW 12.7 % (11.5-15.5); WBC 8.8 k/uL (3.8-10.6)
[2024-07-24] MEDS: KETOROLAC 15 MG/ML 1 ML VIAL IVP STA (11:56)
[2024-07-24 12:00] LABS: ALT 37 U/L (4-49); AST 26 U/L (17-59); African American GFR (CKD) >90 (>60 ml/min/1.73 sqM); Albumin 4.2 g/dL (3.5-5.0); Alkaline Phosphatase 85 U/L (38-126); Anion Gap 8 mmol/L; Blood Urea Nitrogen 11 mg/dL (9-20); Calcium 9.6 mg/dL (8.4-10.2); Carbon Dioxide 25 mmol/L (22-30); Chloride 105 mmol/L (98-107); Glucose 98 mg/dL (74-99); Magnesium 1.9 mg/dL (1.6-2.3); Non-African American GFR(CKD) >90 (>60 ml/min/1.73 sqM); Potassium 3.9 mmol/L (3.5-5.1); Sodium 138 mmol/L (137-145); Total Bilirubin 0.7 mg/dL (0.2-1.3)
--- NOTE | 2024-07-24 12:11 | XR ---
EXAMINATION TYPE: XR chest 2V DATE OF EXAM: 07/24/2024 CLINICAL INDICATION: Male, 28 years old with history of Chest Pain, TECHNIQUE: Frontal and lateral views of the chest are obtained. COMPARISON: Prior chest x-ray January 24, 2021 FINDINGS: Stable mild right apical pleural/parenchymal scarring. There is no focal air space opacity , pleural effusion, or pneumothorax seen. The cardiac silhouette size remains within normal limits. The osseous structures are intact. IMPRESSION: No acute process. [facility], , 07/24/2024 12:09 PM
[2024-07-24 12:42] VITALS: BP 138/87; PULSE 72; RESP 18
== END 2024-07-24 12:42 | disposition home or self-care (01) ==
LOC: EC 11:03
DX: R07.89 Other chest pain (principal); F17.200 Nicotine dependence, unspecified, uncomplicated; Z91.018 Allergy to other foods
CPT/HCPCS: 36415; 93005; 85379; 80053; 83735; 84484; 85025; 71046; 99285; 96374; J1885